=== PATIENT | male | born 1965 | race African-American/Black ===

== ENCOUNTER 2017-03-22 14:04 | Inpatient (IN) ==
[2017-03-22] MEDS ORDERED: MAGNESIUM SULF RIDER 4 GM in PREMIX 1 EACH IV PRN (14:17)
[2017-03-22] MEDS ORDERED: ZALEPLON 5 MG CAPSULE PO PRN (14:17)
[2017-03-22] MEDS ORDERED: ACETAMINOPHEN 325 MG TABLET PO PRN (14:17)
[2017-03-22] MEDS ORDERED: MAGNESIUM SULF RIDER 2 GM in PREMIX 1 EACH IV PRN (14:17)
[2017-03-22] MEDS ORDERED: DOCUSATE SODIUM 100 MG CAPSULE PO PRN (14:17)
[2017-03-22] MEDS ORDERED: ONDANSETRON 4 MG/2 ML VIAL IV PRN (14:17)
[2017-03-22] MEDS ORDERED: GLUCAGON 1 MG VIAL IM PRN (14:25)
[2017-03-22] MEDS ORDERED: DEXTROSE 50% 25 GM/50 ML VIAL IV PRN (14:25)
--- NOTE | 2017-03-22 16:14 | Cardiology History & Physical ---
Assessment and Plan - Time spent with patient Time spent with patient: Greater than 30 minutes (1) Acute decompensated heart failure Status: Acute Assessment and plan: Acute on chronic systolic and diastolic heart failure Current Visit: Yes (2) Chronic renal insufficiency, stage III (moderate) Status: Chronic Assessment and plan: renal ultrasound and ask Dr. Celis to see. This is chronic at creat of 2.[address] Nieves's office. Back to 2014 creatinine from 1.7 to 3.3 mg/dL Current Visit: Yes (3) Diabetes mellitus Status: Chronic Current Visit: Yes Qualifiers: Diabetes mellitus type: type 2 (4) Dyslipidemia Status: Chronic Assessment and plan: The EHR has atorvastatin listed as an allergy but the patient reports being on this medication. Current Visit: Yes History of Present Illness Chief complaint: Lower extremity edema History of present illness: Mr. Lopez is a 51 year old male gentleman who resides with his parents. He has never been and has no children. The patient has a known history of cardiomyopathy and renal failure. He was evaluated here in 2014 at which time his ejection fraction was 45% and his renal insufficiency had a creatinine of 2.3. He was seen at that time by Dr. Ronni Velásquez from cardiology and Dr. Michelet Celis from nephrology. The patient has apparently not been seen by the specialties in some time and he is followed by primary care provider in [facility]. He also is previously been diagnosed with diabetes and his last evaluation here he was on metformin he now takes Victoza as needed blood sugar greater than 160. He states on average he takes this 2-3 times per week. The patient denies any chest pain and he states that he is able to sleep on one pillow on his stomach each night without orthopnea. Over the last several months he has progressive lower extremity edema for which he saw Dr. Nieves was evaluated and found to have a creatinine of 2.7 and a pro-Beta natruretic peptide of over 10,000. He was referred here for evaluation. The patient denies dyspnea on exertion angina or orthopnea. He does however have significant lower extremity edema that is likely multifactorial. He is admitted for further evaluation and current evaluation and medical therapy. Home Medications Medication Instructions Recorded Confirmed Type Aspirin EC Tab 81 mg PO DAILY tablet 08/27/15 09/23/15 Rx Atorvastatin [Lipitor] 40 mg PO DAILY #30 tablet 08/27/15 09/23/15 Rx Carvedilol [Coreg] 6.25 mg PO BID #30 tablet 08/27/15 09/23/15 Rx Furosemide Tab [Lasix Tab] 40 mg PO DAILY #30 tablet 08/27/15 09/23/15 Rx Nitroglycerin Sl Tab [Nitrostat] 0.4 mg SL Q5M PRN #30 tablet 08/27/15 09/23/15 Rx Liraglutide [Victoza 3-Rhett] 1 ml SUBCUT DAILY 03/22/17 03/22/17 History Lisinopril 40 mg PO DAILY 03/22/17 03/22/17 History Silver Sulfadiazine [Ssd] 1 applicator TOP BID 03/22/17 03/22/17 History Allergies Allergy/AdvReac Type Severity Reaction Status Date / Time atorvastatin [From Lipitor] AdvReac Unknown/Unable Verified 09/23/15 18:31 to obtain ciprofloxacin [From Cipro] AdvReac Unknown/Unable Verified 09/23/15 18:32 to obtain - Constitutional Constitutional: Present: daytime sleepiness, fatigue, lethargy, malaise, weight gain. Absent: anorexia, chills, fever(s), night sweats, stops breathing during sleep - EENT Eyes: Absent: blurry vision, diplopia Ears: Absent: ear discharge Nose, mouth and throat: Absent: dysphagia, lip swelling, tongue swelling - Cardiovascular Cardiovascular: Present: edema. Absent: chest pain at rest, chest pain with activity, diaphoresis, dyspnea, dyspnea on exertion, lightheadedness, orthopnea , palpitations, PND - Respiratory Respiratory: Absent: cough, dyspnea, hemoptysis, dyspnea on exertion, wheezing, snoring, pain on inspiration - Gastrointestinal Gastrointestinal: Absent: abdominal pain, bloating, constipation, cramping, diarrhea, dyspepsia, dysphagia, heartburn, hematemesis, hematochezia, loose stools, melena, nausea, jaundice - Genitourinary Genitourinary: Absent: difficulty urinating, dysuria, flank pain, hematuria, nocturia, testicular pain - Musculoskeletal Musculoskeletal: Absent: arthralgias, joint swelling - Neurological Neurological: Absent: behavioral changes, confusion, convulsions, disequilibrium , dizziness - Psychiatric Psychiatric: Absent: anxiety, depression, panic attacks, suicidal ideation - Endocrine Endocrine: Absent: cold intolerance, fatigue, heat intolerance, polyuria - Hematologic/Lymphatic Hematologic/Lymphatic: Absent: easy bleeding, easy bruising Medical,Surgical,& Family Hx - Medical History Cardio: History of: Hypertension, [place] (NQMI with TnI to 2014), Cardiovascular Problems (cardiomyopathy (45%) 2014) Endocrine: History of: Diabetes Mellitus (NIDDM), Dyslipidemia Respiratory: History of: Intubation, Pneumonia (prolonged ventilator course and required a trach.), Respiratory Problems (pulmonary hypertension) Renal: History of: Renal Failure - Surgical History Additional Surgical History: trach at the time of prolonged mechanical ventilation - Family History Family History: Reports;: Family Diabetes (MOTHER FATHER SISTER), Family Stroke (MOTHER) Denies;: Family Cancer - Social History Smoking Status: Never smoker Frequency of Alcohol Use: None Type of Drug Use: None Marital Status: Single Lives With:: Parent Functional capacity: independent ambulation Cardiology Physical Exam - Constitutional Vitals: Vital Signs Temp Pulse Resp BP Pulse Ox 98.3 F 106 H 18 161/91 100 03/22/17 15:58 03/22/17 15:58 03/22/17 15:58 03/22/17 15:58 03/22/17 15:58 Intake and Output 03/22/17 03/22/17 03/22/17 07:59 15:59 23:59 Other: Weight 95.736 kg Patient Weight 03/22/17 23:59 Weight 95.736 kg General appearance: normal weight - Head Head exam: Present: normal inspection - Eye Eye exam: Present: EOMI Pupils: Present: JOSE - ENT ENT exam: Present: normal exam - Neck Neck exam: Present: normal inspection - Respiratory Respiratory exam: Present: clear to auscultation bilaterally - Cardiovascular Cardiovascular exam: Present: regular rate and rhythm (summation gallop and PMI is enlarged. No significant murmur) - GI/Abdominal GI/Abdominal exam: Present: normal bowel sounds - Extremities Exam Extremities exam: Present: full ROM, edema (3+) - Back Exam Back exam: Present: normal inspection - Neurological Exam Neurological exam: Present: alert, oriented X3 - Psychiatric Psychiatric exam: Present: flat affect - Skin Skin exam: Present: normal color, warm, erythema
[2017-03-22 16:38] LABS: Basophils # 0.1 10*3/uL (0.0-0.2); Basophils % 0.8 % (0.0-0.8); Eosinophils % 0.7 % (0.00-10.9); Hematocrit 38.9 VOL% (42.0-52.0); Hemoglobin 12.7 GM/DL (14.0-18.0); Immature Granulocytes % 0.7 %; Immature Granulocytes Absolute 0.04 #; Lymphocytes # 0.9 10*3/uL (1.4-4.0); Mean Corpuscular HGB Conc 32.6 GM/DL (32-36); Mean Corpuscular Hemoglobin 30 PG (27-34); Mean Corpuscular Volume 92.2 FL (87-102); Mean Platelet Volume 11.9 FL (9.6-12.0); Monocytes # 0.6 10*3/uL (0.11-0.8); Monocytes % 9.2 % (1.7-12.7); Neutrophils # 4.5 10*3/uL (1.4-7.4); Neutrophils % 73.6 % (38.7-73.9); Platelet Count 243 T/CUMM (130-400); Red Blood Count 4.22 MC/CUMM (3.8-5.5); White Blood Count 6.1 T/CUMM (4-12)
[2017-03-22] MEDS: hydrALAZINE 25 MG TABLET PO SCH ×2 (16:58→21:19)
[2017-03-22] MEDS: ISOSORBIDE DINITRATE 20 MG TABLET PO SCH ×2 (16:58→21:19)
[2017-03-22] MEDS: FUROSEMIDE 40 MG/4 ML VIAL IV SCH (17:00)
[2017-03-22] MEDS: INSULIN REGULAR 100 UNIT/ML SUBCUT SCH ×2 (17:03→21:19)
--- NOTE | 2017-03-22 17:05 | Nephrology Consult Note ---
History of Present Illness Chief complaint: Increased BUN and creatinine History of present illness: Mr. Lopez is a 51 year old male with chronic kidney disease who apparently saw in the past about 2 years ago for the same. Patient was admitted today for swelling in his legs. The patient states his leg swelling has been progressively worsening over the past month or so. The patient takes Lasix 40 mg once daily at home. He states this is been effective for him. He does state that perhaps he is been eating at [employer] a little bit more frequently than usual. The patient also takes lisinopril at home. Review of the patient' s lab from a year ago reveals that he had a creatinine around 2.8 mg/dL in 2016 and apparently his creatinine at the outpatient office today was 2.7 mg/dL. The patient is presently getting Lasix 80 mg twice a day IV. The patient denies any shortness of breath or paroxysmal nocturnal dyspnea. ROS: Head - denies headaches ENT - denies sore throat Lymphatics - denies lymphadenopathy Hematology - denies bleeding problems Heart - denies chest pain Lungs - denies shortness of breath Abdomen - denies abdominal pain Musculoskeletal - denies arthritis, he takes a couple of aspirin every week or so for headaches. Skin - denies rash Neurology - denies stroke General - denies fever PE: General: in no acute distress Eyes: Pupils are round and reactive, conjunctivae are clear ENT: Nose is clear, O/P is benign Neck: Supple, no thyromegaly Lymphatics: No cervical, supraclavicular or axillary adenopathy Heart: Regular rate and rhythm, 2+ pretibial edema Lungs: Clear to auscultation anteriorly, chest expansion symmetric Abdomen: Soft, normoactive bowel sounds, no hepatomegaly Musculoskeletal: No joint erythema or effusions or joint asymmetry Skin: Normal turgor, normal hydration, no rash Neuro/Psych: Alert and cooperative with fair insight Home Medications Medication Instructions Recorded Confirmed Type Aspirin EC Tab 81 mg PO DAILY tablet 08/27/15 03/22/17 Rx Atorvastatin [Lipitor] 40 mg PO DAILY #30 tablet 08/27/15 03/22/17 Rx Carvedilol [Coreg] 6.25 mg PO BID #30 tablet 08/27/15 03/22/17 Rx Furosemide Tab [Lasix Tab] 40 mg PO DAILY #30 tablet 08/27/15 03/22/17 Rx Nitroglycerin Sl Tab [Nitrostat] 0.4 mg SL Q5M PRN #30 tablet 08/27/15 03/22/17 Rx Liraglutide [Victoza 3-Rhett] 1 ml SUBCUT DAILY 03/22/17 03/22/17 History Lisinopril 40 mg PO DAILY 03/22/17 03/22/17 History Silver Sulfadiazine [Ssd] 1 applicator TOP BID 03/22/17 03/22/17 History Allergies Allergy/AdvReac Type Severity Reaction Status Date / Time atorvastatin [From Lipitor] AdvReac Unknown/Unable Verified 09/23/15 18:31 to obtain ciprofloxacin [From Cipro] AdvReac Unknown/Unable Verified 09/23/15 18:32 to obtain Medical,Surgical,& Family Hx - Medical History Cardio: History of: Congenital Heart Disease, CAD, Hypertension, [place] (NQMI with TnI to 2014), Cardiovascular Problems (cardiomyopathy (45%) 2014) Endocrine: History of: Diabetes Mellitus (NIDDM), Dyslipidemia Respiratory: History of: Intubation, Pneumonia (prolonged ventilator course and required a trach.), Respiratory Problems (pulmonary hypertension) Renal: History of: Renal Failure - Family History Family History: Reports;: Family Diabetes (MOTHER FATHER SISTER), Family Stroke (MOTHER) Denies;: Family Cancer - Social History Smoking Status: Former smoker Frequency of Alcohol Use: None Type of Drug Use: None Exam - Vital Signs Vital signs: Period Temp Pulse Resp BP Sys/Alvarez Pulse Ox Last 24 Hr 98.3 F 106 18 161/91 100 Results - Labs CBC & BMP: 03/22/17 16:06 Assessment and Plan (1) Chronic renal insufficiency, stage III (moderate) Status: Chronic Assessment and plan: Patient's creatinine apparently is 2.7 mg/dL in the outpatient setting this is unchanged from about a year ago. I suspect his renal insufficiency is secondary to his diabetes and hypertension. We will continue to monitor this. Current Visit: Yes (2) Acute decompensated heart failure Status: Acute Assessment and plan: I agree with the Lasix as ordered, will observe for an increase in his creatinine during his diuresis. His KEL inhibitor is being held presently during his active diuresis once he is out of heart failure and if his creatinine is fairly stable I would be inclined to restart his KEL inhibitor. Current Visit: Yes (3) Diabetes mellitus Status: Chronic Current Visit: Yes Qualifiers: Diabetes mellitus type: type 2 (4) Anemia Status: Acute Assessment and plan: This is mild the patient's is around 39% Current Visit: Yes
[2017-03-22 17:14] LABS: Bilirubin,Direct 0.1 MG/DL (0.0-0.20); Bilirubin,Indirect 0.3 MG/DL (0.0-1.0); Bilirubin,Total 0.4 MG/DL (0.2-1.0); Total Protein 6.1 G/DL (6.4-8.3)
[2017-03-22 17:20] LABS: Calcium 9.7 MG/DL (8.5-10.1); Magnesium 1.7 MG/DL (1.8-2.4); Osmolality,Calculated 281.7 MOS/KG (273-304); Potassium 4.3 MMOL/L (3.5-5.1); Risk Ratio 1.96; Thyroid Stimulating Hormone 1.22 uIU/ml (0.358-3.74); VLDL CHOLESTEROL 14.8 MG/DL
[2017-03-22 17:44] LABS: Apearance,Urine CLEAR (Clear); Bilirubin,Urine Negative (Negative); Blood, Urine Negative (Negative); Glucose,Urine (UA) 50 mg/dL (Negative); Ketones,Urine Negative (Negative); Mucus,Urine Occasional /LPF (Occasional); Nitrite,Urine Negative (Negative); Protein,Urine >=500 MG/DL; RBC,Urine 1 /HPF (0-4); Urine Color Straw (Yellow); Urine Specific Gravity 1.007 (1.001-1.035); Urine Urobilinogen < 2.0 EU/DL (0.2-1.0)
--- NOTE | 2017-03-22 19:16 | Ultrasound Report ---
Exam: US renal Bilateral Date: 03/22/2017 2:17 PM Comparison: 08/23/2015 Indication: Chronic renal failure Technique:[Multiple transabdominal real-time scans were obtained of the kidneys. Ultrasound images were captured and stored.] Findings: Right kidney measures 101 x 49 x 43 mm. Right kidney measured 106 mm on previous exam. Left kidney measures 109 x 54 x 55 mm. Left kidney measures 110 mm in length on previous exam. 9 mm right midpole possible calculus with no hydronephrosis. Cortical scarring in the kidneys with inhomogeneous echogenicity. No masses are identified. Impression: Progressive cortical scarring in the kidneys with inhomogeneous echogenicity which can be seen with medical renal disease. Possible 9 mm right midpole renal calculus with no hydronephrosis. PROCEDURE INTERPRETED AT [facility] DEPARTMENT OF RADIOLOGY Final Report Signed by: Dr. Fauzia Perez
--- NOTE | 2017-03-22 19:18 | XRay Report ---
XR chest 2V Date: 03/22/2017 2:19 PM History: Shortness of breath Comparison: 09/23/2015 Technique: PA and lateral chest Findings: The heart is minimally enlarged with calcification in the aortic knob. Small left pleural effusion with progressive adjacent parenchymal findings. Decreased parenchymal findings at the right lung base. Stable mediastinum and osseous structures. Impression: Small left pleural effusion with adjacent atelectasis/infiltration. Follow-up chest x-ray is recommended to document clearing and exclude additional underlying pleural-based pathology. Reduced atelectasis/edema at the right lung base. PROCEDURE INTERPRETED AT [facility] DEPARTMENT OF RADIOLOGY Final Report Signed by: Dr. Fauzia Perez
[2017-03-22] MEDS ORDERED: CARVEDILOL 3.125 MG TABLET PO SCH (21:00)
[2017-03-22] MEDS: CARVEDILOL 6.25 MG TABLET PO SCH (21:19)
[2017-03-22] MEDS: ENOXAPARIN 40 MG/0.4 ML SYRINGE SUBCUT SCH (21:19)
[2017-03-23 04:55] LABS: Basophils # 0.1 10*3/uL (0.0-0.2); Basophils % 1.1 % (0.0-0.8); Eosinophils # 0.1 10*3/uL (0.0-0.87); Hematocrit 32.2 VOL% (42.0-52.0); Hemoglobin 10.5 GM/DL (14.0-18.0); Immature Granulocytes % 0.2 %; Immature Granulocytes Absolute 0.01 #; Lymphocytes # 1.4 10*3/uL (1.4-4.0); Lymphocytes % 24.3 % (21.2-54.2); Mean Corpuscular HGB Conc 32.6 GM/DL (32-36); Mean Corpuscular Hemoglobin 30 PG (27-34); Mean Corpuscular Volume 90.4 FL (87-102); Mean Platelet Volume 11.5 FL (9.6-12.0); Monocytes # 0.8 10*3/uL (0.11-0.8); Monocytes % 14.7 % (1.7-12.7); Neutrophils # 3.3 10*3/uL (1.4-7.4); Neutrophils % 57.7 % (38.7-73.9); Platelet Count 206 T/CUMM (130-400); Red Blood Count 3.56 MC/CUMM (3.8-5.5); Red Cell Distribution Width 14.7 % (9.3-17.3); White Blood Count 5.6 T/CUMM (4-12)
[2017-03-23 05:21] LABS: Calcium 8.2 MG/DL (8.5-10.1); Magnesium 1.7 MG/DL (1.8-2.4); Osmolality,Calculated 288.3 MOS/KG (273-304); Potassium 3.9 MMOL/L (3.5-5.1)
--- NOTE | 2017-03-23 06:55 | EKG Report ---
Stationary ECG Study [facility] Test Date: 03/23/2017 6:55:53 AM Pat Name: JOSE ARMANDO ROBLES Department: Room: 270 Gender: M Arts Therapist: RUBEN : 1965 Requested by: Siri Alvarado Order Number: [id number] Geovanny MD: JEFF LITTLE Intervals [place] Rate: 93 P: 57 [place]: 184 QRS: 40 QRSD: 90 T: 156 QT: 369 QTc: 419 Interpretive Statements SINUS RHYTHM WITH SINUS ARRHYTHMIA POSSIBLE ANTERIOR MYOCARDIAL INFARCTION, OLD Electronically Signed On 03-23-17 12:56:43 CDT by JEFF LITTLE [email or web address]
--- NOTE | 2017-03-23 08:06 | Nephrology Progress Note ---
Nephrology - PN: Subj Interval history: Patient denies shortness of breath. Review of systems cardiovascular-patient feels like he has not lost any of the edema in his legs Physical exam general patient is in no acute distress, he has 1-2+ pretibial edema, his weight is unchanged from yesterday Assessment/plan 1. Chronic kidney disease stage III-patient's creatinine is unchanged at 2.7 mg/dL, I suspect this patient has chronic kidney disease related to diabetes and hypertension 2. Volume overload-this patient has some extra fluid in his legs however he is asymptomatic, based on his weights and subjective appearance he may not have had much of a diuresis with the present dose of Lasix. We could try going to 160 mg of Lasix IV. He is asymptomatic and we could also try and manage him outpatient if so and probably give him 80 mg 160 mg p.o. twice daily with close follow-up. I be happy to see the patient in a week or 2 post discharge 3. Diabetes mellitus 4. Hypertension this is controlled Exam (PN)-Nephrology - Vital Signs Vital signs: Period Temp Pulse Resp BP Sys/Alvarez Pulse Ox Last 24 Hr 97.9 F-98.7 F 90-106 16-18 123-161/31-91 91-100 - Lab 03/23/17 04:38 03/23/17 04:38 Most recent lab results Calcium 8.2 MG/DL (8.5-10.1) L 03/23/17 04:38 Magnesium 1.7 MG/DL (1.8-2.4) L 03/23/17 04:38 Assessment and Plan (1) Chronic renal insufficiency, stage III (moderate) Status: Chronic Assessment and plan: Patient's creatinine apparently is 2.7 mg/dL in the outpatient setting this is unchanged from about a year ago. I suspect his renal insufficiency is secondary to his diabetes and hypertension. We will continue to monitor this. Current Visit: Yes (2) Acute decompensated heart failure Status: Acute Assessment and plan: I agree with the Lasix as ordered, will observe for an increase in his creatinine during his diuresis. His KEL inhibitor is being held presently during his active diuresis once he is out of heart failure and if his creatinine is fairly stable I would be inclined to restart his KEL inhibitor. Current Visit: Yes (3) Diabetes mellitus Status: Chronic Current Visit: Yes Qualifiers: Diabetes mellitus type: type 2 (4) Anemia Status: Acute Assessment and plan: This is mild the patient's is around 39% Current Visit: Yes Specialty Discharge - Follow Up or Referrals Follow up with: Cachorro Celis MD [Physician] - 1 Week (with a bmp)
[2017-03-23] MEDS ORDERED: ASPIRIN EC 81 MG TABLET PO SCH (09:00)
[2017-03-23] MEDS: ASPIRIN CHEW 81 MG TABLET PO SCH (09:14)
[2017-03-23] MEDS: CARVEDILOL 6.25 MG TABLET PO SCH ×2 (09:14→21:15)
[2017-03-23] MEDS: ISOSORBIDE DINITRATE 20 MG TABLET PO SCH ×3 (09:14→21:14)
[2017-03-23] MEDS: PANTOPRAZOLE 40 MG TABLET PO SCH (09:14)
[2017-03-23] MEDS: hydrALAZINE 25 MG TABLET PO SCH ×3 (09:14→21:15)
[2017-03-23] MEDS: FUROSEMIDE 40 MG/4 ML VIAL IV SCH ×2 (09:15→17:15)
[2017-03-23] MEDS: INSULIN REGULAR 100 UNIT/ML SUBCUT SCH ×4 (09:15→21:15)
[2017-03-23] MEDS: ATORVASTATIN 40 MG TABLET PO SCH (09:17)
--- NOTE | 2017-03-23 13:50 | ECHO Report ---
Tim Lopez 03/23/2017 Exam Date: 10:28 Referring Physician: Reva Munroe Technologist: GAGE Age: 51 Ht (in): 70 Wt (lb): 211 MExam [facility] Gender: Echo [id number]: diabetes, dyslipidemia, lower extremIndications:ities edema, acute decompensated heart failure, chronic renal failure BP: 121 / 75 HR: 81 SinusRhythm: GOODTechnical Quality: IMPRESSIONS Left ventricular ejection fraction is estimated at 20Mild tricuspid valve regurgitation. Tricuspid regurgitation velocities suggest a RVSP of 42mmhg + RAP. %. There is global hypokinesis. Diastolic parameters are most consistent with grade 3 diastolic dysfunction restrictive physiology. MEASUREMENTS (Male / Female) Normal Values 2D ECHO LV Diastolic Diameter PLAX 5.4 cm 4.2 - 5.9 / 3.9 - 5.3 cm LV Systolic Diameter PLAX 4.9 cm LV Fractional Shortening PLAX 9.6 % IVS Diastolic Thickness 1.2 cm 0.6 - 1.0 / 0.6 - 0.9 cm LVPW Diastolic Thickness 1.2 cm 0.6 - 1.0 / 0.6 - 0.9 cm RV Internal Dim ED PLAX 2.8 cm Aortic Root Diameter 2.5 cm LA Systolic Diameter LX 4.1 cm 3.0 - 4.0 / 2.7 - 3.8 cm DOPPLER TR Peak Velocity 326.0 cm/s TR Peak Gradient 42.5 mmHg FINDINGS Left Ventricle Mildly increased left ventricular cavity size. Mild concentric left ventricular hypertrophy with severe diastolic dysfunction. Left ventricular ejection fraction is estimated at 20-%. There is global hypokinesis. Diastolic parameters are most consistent with grade 3 diastolic dysfunction restrictive physiology. Right Ventricle Normal right ventricular size. Right Atrium Normal right atrial size. Left Atrium The left atrium is mildly enlarged. Mitral Valve Morphologically normal mitral valve. Trace mitral valve regurgitation. Aortic Valve The aortic valve is trileaflet, delicate and has normal motion. Trace to mild aortic valve regurgitation. Tricuspid Valve Morphologically normal tricuspid valve. Mild tricuspid valve regurgitation. Tricuspid regurgitation velocities suggest a RVSP of 42mmhg + RAP. Pulmonic Valve Morphologically normal pulmonic valve. Pericardium No pericardial effusion. Aorta Normal size aortic root and proximal ascending aorta. Paige Covington (Electronically Signed) 23 March 2017 Final Date: 13:49
--- NOTE | 2017-03-23 13:53 | Cardiology Progress Note ---
Assessment and Plan - Time spent with patient Time spent with patient: Less than 30 minutes (1) Acute decompensated heart failure Status: Acute Assessment and plan: See plan of care listed below. Current Visit: Yes (2) Chronic renal insufficiency, stage III (moderate) Status: Chronic Assessment and plan: See plan of care listed below. Current Visit: Yes (3) Diabetes mellitus Status: Chronic Assessment and plan: See plan of care listed below. Current Visit: Yes Qualifiers: Diabetes mellitus type: type 2 (4) Dyslipidemia Status: Chronic Assessment and plan: See plan of care listed below. 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 Lopez is a 51 year old male with a history of cardiomyopathy and renal failure. He was evaluated here in 2014 at which time his ejection fraction was 45% and his renal insufficiency had a creatinine of 2.3. He was seen at that time by Dr. Ronni Velásquez from cardiology and Dr. Michelet Celis from nephrology. He was referred to our facility from Dr. Nieves's office on 03/22/17 for further evaluation of progressive BLE edema, creatinine 2.7, and pro-BNP of >10,000. We have ordered an echo for further evaluation and consulted nephrology to aid in his care. Renal ultrasound revealed progressive cortical scarring in the kidneys with inhomogenous echogenicity and a possible 9mm right midpole renal calculus with no hydronephrosis. Echocardiogram revealed EF 20%, grade 3 distolic dysfunction. MARCH 23, 2017 UPDATE: Mr. Lopez continues to have significant BLE edema. He reports he has been ambulating without significant dyspnea and denies orthopnea. He is only negative approximately 500 ml in his I&O's. There has been no significant change in his weight. His Lasix was increased to 80mg IV BID yesterday afternoon. ASSESSMENT/PLAN: 1. ACUTE DECOMPENSATED HEART FAILURE - Acute on chronic systolic and diastolic heart failure. Echo is pending. Continue diuresis with Lasix. 2. CHRONIC RENAL INSUFFICIENCY, STAGE III - Creatinine 2.7 today. Nephrology is following. 3. DIABETES MELLITUS - He is on accuchecks ACHS with sliding scale insulin. 4. DYSLIPIDEMIA - The EHR has atorvastatin listed as an allergy but the patient reports being on this medication. He has been tolerating atorvastating s difficulty. Exam (Progress Note) - Constitutional Vitals: Period Temp Pulse Resp BP Sys/Alvarez Pulse Ox Last 24 Hr 97.9 F-98.7 F 81-106 16-18 121-161/31-91 91-100 Exam: General: Present: Appears Well, No Apparent Distress. Pleasant and cooperative. HEENT: Present: PERRL, Normocephaly, atraumatic. Mucus Membranes Moist. Conjunctiva moist and clear. Neck: Present: Supple Neck, Midline Trachea, No Masses, No Bruit, No tenderness Cardiac: Present: Regular Rate and Rhythm, No Murmur Lungs: Present: clear to auscultation bilaterally, no wheezes, rhonchi, rales. Neuro: Present: Awake, alert, and oriented x3. Moves all extremities well without hemiparesis or paralysis. Grossly Intact. Absent: Resting Tremor, Essential Tremor Abdomen: Present: Soft, Active Bowel Sounds, No Masses, Non-Tender, nondistended. No abdominal bruit or thrill noted. Skin: Present: Clear. Absent: Rash, No skin breakdown. Back: Normal inspection, no vertebral tenderness. Musculoskeletal: Present: No Fluid Collection, No Pain, Normal Range of Motion Extremities: Present: Normal Gait, No Clubbing, No Cyanosis, Upper Extr. Pulses 2+, Lower Extr. Pulses 2+, 2-3+ pitting edema to BLE. Capillary refill less than 3 seconds. Result/EKG - Labs CBC & BMP: 03/23/17 04:38 03/23/17 04:38 Lab Results: I have reviewed the past 24 hour labs Labs: Laboratory Results - last 24 hr 03/22/17 03/22/17 03/22/17 15:58 15:58 16:06 WBC 6.1 RBC 4.22 Hgb 12.7 L Hct 38.9 L MCV 92.2 MCH 30 MCHC 32.6 RDW 15.0 Plt Count 243 MPV 11.9 Neut % (Auto) 73.6 Lymph % (Auto) 15.[address] % (Auto) 9.2 Eos % (Auto) 0.7 Baso % (Auto) 0.8 Neut # (Auto) 4.5 Lymph # (Auto) 0.[address] [facility] # (Auto) 0.6 Eos # (Auto) 0.0 Baso # (Auto) 0.1 Immature Gran % 0.7 Nucleated RBC % 0.0 Immature Gran # 0.04 Nucleated RBCs # 0.00 Sodium Potassium Chloride Carbon Dioxide Anion Gap BUN Creatinine GFR Calculation BUN/Creatinine Ratio Glucose POC Glucose Hemoglobin A1c 7.5 H Calculated Osmolality Calcium Magnesium Total Bilirubin 0.40 Direct Bilirubin 0.10 Indirect Bilirubin 0.3 AST 35 ALT 26 Alkaline Phosphatase 72 Troponin I Total Protein 6.1 L Albumin 3.0 L Triglycerides Cholesterol LDL Cholesterol VLDL Cholesterol HDL Cholesterol Heart Disease Risk Ratio TSH 3rd Generation Urine Color Urine Appearance Urine pH Ur Specific [place] Urine Protein Urine Glucose (UA) Urine Ketones Urine Blood Urine Nitrate Urine Bilirubin Urine Urobilinogen Urine Leukocytes Urine RBC Urine Mucus Ur Culture Indicated? 03/22/17 03/22/17 03/22/17 16:06 16:06 17:02 WBC RBC Hgb Hct MCV MCH MCHC RDW Plt Count MPV Neut % (Auto) Lymph % (Auto) [place] % (Auto) Eos % (Auto) Baso % (Auto) Neut # (Auto) Lymph # (Auto) [place] # (Auto) Eos # (Auto) Baso # (Auto) Immature Gran % Nucleated RBC % Immature Gran # Nucleated RBCs # Sodium 138 Potassium 4.3 Chloride 101 Carbon Dioxide 32 Anion Gap 9.3 BUN 33 H Creatinine 2.70 H GFR Calculation 37 BUN/Creatinine Ratio 12.00 Glucose 97 POC Glucose 130 H Hemoglobin A1c Calculated Osmolality 281.7 Calcium 9.7 Magnesium 1.7 L Total Bilirubin Direct Bilirubin Indirect Bilirubin AST ALT Alkaline Phosphatase Troponin I 0.053 H Total Protein Albumin Triglycerides 74 Cholesterol 180 LDL Cholesterol 86.0 VLDL Cholesterol 14.8 HDL Cholesterol 92 H Heart Disease Risk Ratio 1.96 TSH 3rd Generation 1.220 Urine Color Urine Appearance Urine pH Ur Specific [place] Urine Protein Urine Glucose (UA) Urine Ketones Urine Blood Urine Nitrate Urine Bilirubin Urine Urobilinogen Urine Leukocytes Urine RBC Urine Mucus Ur Culture Indicated? 03/22/17 03/22/17 03/22/17 17:30 18:56 20:19 WBC RBC Hgb Hct MCV MCH MCHC RDW Plt Count MPV Neut % (Auto) Lymph % (Auto) [place] % (Auto) Eos % (Auto) Baso % (Auto) Neut # (Auto) Lymph # (Auto) [place] # (Auto) Eos # (Auto) Baso # (Auto) Immature Gran % Nucleated RBC % Immature Gran # Nucleated RBCs # Sodium Potassium Chloride Carbon Dioxide Anion Gap BUN Creatinine GFR Calculation BUN/Creatinine Ratio Glucose POC Glucose 159 H Hemoglobin A1c Calculated Osmolality Calcium Magnesium Total Bilirubin Direct Bilirubin Indirect Bilirubin AST ALT Alkaline Phosphatase Troponin I 0.039 Total Protein Albumin Triglycerides Cholesterol LDL Cholesterol VLDL Cholesterol HDL Cholesterol Heart Disease Risk Ratio TSH 3rd Generation Urine Color Straw Urine Appearance Clear Urine pH 8.0 Ur Specific [place] 1.007 Urine Protein >=500 Urine Glucose (UA) 50 Urine Ketones Negative Urine Blood Negative Urine Nitrate Negative Urine Bilirubin Negative Urine Urobilinogen < 2.0 H Urine Leukocytes Negative Urine RBC 1 Urine Mucus Occasional Ur Culture Indicated? Not indicated 03/22/17 03/23/17 03/23/17 20:42 04:38 04:38 WBC 5.6 RBC 3.56 L Hgb 10.5 L D Hct 32.2 L MCV 90.4 MCH 30 MCHC 32.6 RDW 14.7 Plt Count 206 MPV 11.5 Neut % (Auto) 57.7 Lymph % (Auto) 24.3 [place] % (Auto) 14.7 H Eos % (Auto) 2.0 Baso % (Auto) 1.1 H Neut # (Auto) 3.3 Lymph # (Auto) 1.4 [place] # (Auto) 0.8 Eos # (Auto) 0.1 Baso # (Auto) 0.1 Immature Gran % 0.2 Nucleated RBC % 0.0 Immature Gran # 0.01 Nucleated RBCs # 0.00 Sodium 141 Potassium 3.9 Chloride 103 Carbon Dioxide 31 Anion Gap 10.9 BUN 36 H Creatinine 2.70 H GFR Calculation 37 BUN/Creatinine Ratio 13.00 Glucose 95 POC Glucose Hemoglobin A1c Calculated Osmolality 288.3 Calcium 8.2 L Magnesium 1.7 L Total Bilirubin Direct Bilirubin Indirect Bilirubin AST ALT Alkaline Phosphatase Troponin I 0.058 H D Total Protein Albumin Triglycerides Cholesterol LDL Cholesterol VLDL Cholesterol HDL Cholesterol Heart Disease Risk Ratio TSH 3rd Generation Urine Color Urine Appearance Urine pH Ur Specific [place] Urine Protein Urine Glucose (UA) Urine Ketones Urine Blood Urine Nitrate Urine Bilirubin Urine Urobilinogen Urine Leukocytes Urine RBC Urine Mucus Ur Culture Indicated? 03/23/17 03/23/17 07:19 11:06 WBC RBC Hgb Hct MCV MCH MCHC RDW Plt Count MPV Neut % (Auto) Lymph % (Auto) [facility] % (Auto) Eos % (Auto) Baso % (Auto) Neut # (Auto) Lymph # (Auto) [facility] # (Auto) Eos # (Auto) Baso # (Auto) Immature Gran % Nucleated RBC % Immature Gran # Nucleated RBCs # Sodium Potassium Chloride Carbon Dioxide Anion Gap BUN Creatinine GFR Calculation BUN/Creatinine Ratio Glucose POC Glucose 101 185 H Hemoglobin A1c Calculated Osmolality Calcium Magnesium Total Bilirubin Direct Bilirubin Indirect Bilirubin AST ALT Alkaline Phosphatase Troponin I Total Protein Albumin Triglycerides Cholesterol LDL Cholesterol VLDL Cholesterol HDL Cholesterol Heart Disease Risk Ratio TSH 3rd Generation Urine Color Urine Appearance Urine pH Ur Specific [place] Urine Protein Urine Glucose (UA) Urine Ketones Urine Blood Urine Nitrate Urine Bilirubin Urine Urobilinogen Urine Leukocytes Urine RBC Urine Mucus Ur Culture Indicated? - EKG EKG results: interpreted by me, sinus rhythm Specialty Discharge - Follow Up or Referrals Follow up with: Cachorro Celis MD [Physician] - 1 Week (with a bmp)
[2017-03-23] MEDS: ENOXAPARIN 40 MG/0.4 ML SYRINGE SUBCUT SCH (21:14)
[2017-03-24 05:55] LABS: Basophils % 0.8 % (0.0-0.8); Eosinophils # 0.1 10*3/uL (0.0-0.87); Eosinophils % 2.1 % (0.00-10.9); Hematocrit 32.6 VOL% (42.0-52.0); Hemoglobin 10.8 GM/DL (14.0-18.0); Immature Granulocytes % 0.4 %; Immature Granulocytes Absolute 0.02 #; Lymphocytes # 0.6 10*3/uL (1.4-4.0); Lymphocytes % 10.8 % (21.2-54.2); Mean Corpuscular HGB Conc 33.1 GM/DL (32-36); Mean Corpuscular Hemoglobin 30 PG (27-34); Mean Corpuscular Volume 90.6 FL (87-102); Mean Platelet Volume 11.6 FL (9.6-12.0); Monocytes # 0.8 10*3/uL (0.11-0.8); Monocytes % 14.6 % (1.7-12.7); Neutrophils # 3.7 10*3/uL (1.4-7.4); Neutrophils % 71.3 % (38.7-73.9); Platelet Count 201 T/CUMM (130-400); Red Cell Distribution Width 14.6 % (9.3-17.3); White Blood Count 5.2 T/CUMM (4-12)
[2017-03-24 06:09] LABS: Calcium 8.2 MG/DL (8.5-10.1); Osmolality,Calculated 286.4 MOS/KG (273-304); Potassium 3.9 MMOL/L (3.5-5.1)
[2017-03-24] MEDS ORDERED: ENOXAPARIN 40 MG/0.4 ML SYRINGE SUBCUT SCH (07:30)
[2017-03-24] MEDS: INSULIN REGULAR 100 UNIT/ML SUBCUT SCH ×2 (07:51→13:14)
--- NOTE | 2017-03-24 08:53 | Event Note ---
Patient underwent nuclear stress testing this morning without incident. Patient attempted Full Nick Protocol but was transitioned to Lexiscan walk due to bilateral lower extremity fatigue and dyspnea. 5.8 METs achieved. Patient experienced no chest pain, heaviness, or tightness. No dizziness, lightheadedness, or syncope. Patient will now be transitioned to nuclear medicine for final scan. Dr. Covington to read, interpret, and advise.
--- NOTE | 2017-03-24 08:54 | Cardiology Progress Note ---
Assessment and Plan - Time spent with patient Time spent with patient: Less than 30 minutes (1) Acute decompensated heart failure Status: Acute Assessment and plan: See plan of care listed below. Current Visit: Yes (2) Chronic renal insufficiency, stage III (moderate) Status: Chronic Assessment and plan: See plan of care listed below. Current Visit: Yes (3) Diabetes mellitus Status: Chronic Assessment and plan: See plan of care listed below. Current Visit: Yes Qualifiers: Diabetes mellitus type: type 2 (4) Dyslipidemia Status: Chronic Assessment and plan: See plan of care listed below. 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 Nieves SUMMARY: Mr. Lopez is a 51 year old male with a history of cardiomyopathy and renal failure. He was evaluated here in 2014 at which time his ejection fraction was 45% and his renal insufficiency had a creatinine of 2.3. He was seen at that time by Dr. Ronni Velásquez from cardiology and Dr. Michelet Celis from nephrology. He was referred to our facility from Dr. Nieves's office on 03/22/17 for further evaluation of progressive BLE edema, creatinine 2.7, and pro-BNP of >10,000. We have ordered an echo for further evaluation and consulted nephrology to aid in his care. Renal ultrasound revealed progressive cortical scarring in the kidneys with inhomogenous echogenicity and a possible 9mm right midpole renal calculus with no hydronephrosis. Echocardiogram revealed EF 20%, grade 3 distolic dysfunction. MARCH 24, 2017 UPDATE: Mr. Lopez continues to have BLE edema although this is improving. He reports he has been ambulating without significant dyspnea and denies orthopnea. He is negative 1.4L in his I&O's. His weight has gone from 2113 to ~203#. He is now on Lasix 80mg IV BID. He underwent nuclear stress testing this morning without incident. We are awaiting these results. ASSESSMENT/PLAN: 1. ACUTE DECOMPENSATED HEART FAILURE - Acute on chronic systolic and diastolic heart failure. Echo revealed ejection fraction 20%, grade 3 diastolic dysfunction, global hypokinesis. Continue diuresis with Lasix. 2. CHRONIC RENAL INSUFFICIENCY, STAGE III - Creatinine 3.0 today. Nephrology is following. 3. DIABETES MELLITUS - He is on accuchecks ACHS with sliding scale insulin. 4. DYSLIPIDEMIA - The EHR has atorvastatin listed as an allergy but the patient reports being on this medication. He has been tolerating atorvastating s difficulty. Exam (Progress Note) - Constitutional Vitals: Period Temp Pulse Resp BP Sys/Alvarez Pulse Ox Last 24 Hr 97.2 F-98.5 F 70-86 16-18 118-130/46-90 97-100 Exam: General: Present: Appears Well, No Apparent Distress. Pleasant and cooperative. HEENT: Present: PERRL, Normocephaly, atraumatic. Mucus Membranes Moist. Conjunctiva moist and clear. Neck: Present: Supple Neck, Midline Trachea, No Masses, No Bruit, No tenderness Cardiac: Present: Regular Rate and Rhythm, No Murmur Lungs: Present: clear to auscultation bilaterally, no wheezes, rhonchi, rales. Neuro: Present: Awake, alert, and oriented x3. Moves all extremities well without hemiparesis or paralysis. Grossly Intact. Absent: Resting Tremor, Essential Tremor Abdomen: Present: Soft, Active Bowel Sounds, No Masses, Non-Tender, nondistended. No abdominal bruit or thrill noted. Skin: Present: Clear. Absent: Rash, No skin breakdown. Back: Normal inspection, no vertebral tenderness. Musculoskeletal: Present: No Fluid Collection, No Pain, Normal Range of Motion Extremities: Present: Normal Gait, No Clubbing, No Cyanosis, Upper Extr. Pulses 2+, Lower Extr. Pulses 2+, 2+ pitting edema to BLE. Capillary refill less than 3 seconds. Result/EKG - Labs CBC & BMP: 03/24/17 05:31 03/24/17 05:31 Lab Results: I have reviewed the past 24 hour labs Labs: Laboratory Results - last 24 hr 03/23/17 03/23/17 03/23/17 11:06 15:56 19:37 WBC RBC Hgb Hct MCV MCH MCHC RDW Plt Count MPV Neut % (Auto) Lymph % (Auto) [place] % (Auto) Eos % (Auto) Baso % (Auto) Neut # (Auto) Lymph # (Auto) [place] # (Auto) Eos # (Auto) Baso # (Auto) Immature Gran % Nucleated RBC % Immature Gran # Nucleated RBCs # Sodium Potassium Chloride Carbon Dioxide Anion Gap BUN Creatinine GFR Calculation BUN/Creatinine Ratio Glucose POC Glucose 185 H 140 H 227 H Calculated Osmolality Calcium 03/24/17 03/24/17 03/24/17 05:31 05:31 07:07 WBC 5.2 RBC 3.60 L Hgb 10.8 L Hct 32.6 L MCV 90.6 MCH 30 MCHC 33.1 RDW 14.6 Plt Count 201 MPV 11.6 Neut % (Auto) 71.3 Lymph % (Auto) 10.8 L [place] % (Auto) 14.6 H Eos % (Auto) 2.1 Baso % (Auto) 0.8 Neut # (Auto) 3.7 Lymph # (Auto) 0.6 L [place] # (Auto) 0.8 Eos # (Auto) 0.1 Baso # (Auto) 0.0 Immature Gran % 0.4 Nucleated RBC % 0.0 Immature Gran # 0.02 Nucleated RBCs # 0.00 Sodium 140 Potassium 3.9 Chloride 102 Carbon Dioxide 30 Anion Gap 11.9 BUN 35 H Creatinine 3.00 H GFR Calculation 32 BUN/Creatinine Ratio 11.00 Glucose 93 POC Glucose 102 Calculated Osmolality 286.4 Calcium 8.2 L - EKG EKG results: interpreted by me, sinus rhythm (with occasional PVC) Specialty Discharge - Follow Up or Referrals Follow up with: Cachorro Celis MD [Physician] - 1 Week (with a bmp)
[2017-03-24] MEDS ORDERED: REGADENOSON 0.4 MG/5 ML SYRINGE IV ONE (09:32)
[2017-03-24] MEDS: ASPIRIN CHEW 81 MG TABLET PO SCH (11:01)
[2017-03-24] MEDS: ISOSORBIDE DINITRATE 20 MG TABLET PO SCH ×2 (11:01→15:18)
[2017-03-24] MEDS: ATORVASTATIN 40 MG TABLET PO SCH (11:01)
[2017-03-24] MEDS: CARVEDILOL 6.25 MG TABLET PO SCH (11:01)
[2017-03-24] MEDS: PANTOPRAZOLE 40 MG TABLET PO SCH (11:01)
[2017-03-24] MEDS: hydrALAZINE 25 MG TABLET PO SCH ×2 (11:01→15:17)
[2017-03-24] MEDS: FUROSEMIDE 40 MG/4 ML VIAL IV SCH (11:02)
[2017-03-24 12:03] VITALS: BP 152/81
--- NOTE | 2017-03-24 14:05 | Discharge Summary ---
Hospital Course - Hospital Course Hospital Course: Mr. Lopez is a 51 year old male with a history of cardiomyopathy and renal failure. He was evaluated here in 2014 at which time his ejection fraction was 45% and his renal insufficiency had a creatinine of 2.3. He was seen at that time by Dr. Ronni Velásquez from cardiology and Dr. Michelet Celis from nephrology. He was referred to our facility from Dr. Nieves's office on 03/22/17 for further evaluation of progressive BLE edema, creatinine 2.7, and pro-BNP of >10,000. We consulted nephrology to aid in his management and appreciate their assistance. Renal ultrasound revealed progressive cortical scarring in the kidneys with inhomogenous echogenicity and a possible 9mm right midpole renal calculus with no hydronephrosis. He has been diuresing well with Lasix 80mg IV BID and has had improvement in his BLE edema. His chest x-ray has shown no evidence of any pulmonary edema. His creatinine has hovered in the 2.7-3.0 range which is unchanged from approximately 1 year ago per records. His echocardiogram revealed EF 20%, grade 3 distolic dysfunction, and global hypokinesis. He had a low risk stress test this morning. His vital signs and labwork are stable. Creatinine is 3.0 at discharge. At this time, he has met maximum benefit from hospitalization and will be discharged home in stable condition. He will follow up with Dr. Celis in 1-2 weeks with BMP and follow up with Dr. Velásquez in 1 month with EKG. He will be discharged on an aspirin, beta sheila, statin, and diuretic. KEL/ARB was not initiated due to chronic renal insufficiency. - Time spent with patient Time with patient DS: Less than 30 minutes Diagnosis - Discharge Diagnosis (1) Acute on chronic combined systolic and diastolic CHF (congestive heart failure) Status: Chronic (2) Acute decompensated heart failure Status: Resolved (3) Chronic renal insufficiency, stage III (moderate) Status: Chronic (4) Diabetes mellitus Status: Chronic (5) Dyslipidemia Status: Chronic Specialty Discharge - Follow Up or Referrals Follow up with: Cachorro Celis MD [Physician] - 1 Week (with a bmp) Hussain Velásquez MD [Physician] - 1 Month (with EKG. ) Discharge Plan - Discharge Data Disposition: Disch To Home/Self Care Condition at Discharge: Stable Discharge Diet: diabetic diet, heart healthy Activity: resume usual activities as tolerated Hygiene: no restrictions Weight Bearing at Discharge: full weight bearing Contact your physician if you experience:: fever over 101, Difficulty voiding, Nausea/Vomiting, Shortness of breath - Discharge Medications New Isosorbide Dinitrate [Isordil] 20 mg PO TID #90 tablet hydrALAZINE TAB [Apresoline Tab] 25 mg PO TID #90 tablet Furosemide Tab [Lasix Tab] 80 mg PO BID DIURETIC #60 tablet Continue Aspirin EC Tab 81 mg PO DAILY tablet Carvedilol [Coreg] 6.25 mg PO BID #30 tablet Atorvastatin [Lipitor] 40 mg PO DAILY #30 tablet Nitroglycerin Sl Tab [Nitrostat] 0.4 mg SL Q5M PRN #30 tablet PRN Reason: Chest Pain Silver Sulfadiazine [Ssd] 1 applicator TOP BID Liraglutide [Victoza 3-Rhett] 1 ml SUBCUT DAILY Discontinued Furosemide Tab [Lasix Tab] 40 mg PO DAILY #30 tablet Lisinopril 40 mg PO DAILY - Follow Up or Referral Follow Up: Cachorro Celis MD [Physician] - 1 Week (with a bmp) Hussain Velásquez MD [Physician] - 1 Month (with EKG. ) - Forms/Instructions Instructions: Heart Failure (GEN), Heart Healthy Diet (GEN) Exam - Constitutional Vitals: Period Temp Pulse Resp BP Sys/Alvarez Pulse Ox Last 24 Hr 96.7 F-98.5 F 70-92 16-18 118-152/46-90 95-100 Exam: General: Present: Appears Well, No Apparent Distress. Pleasant and cooperative. HEENT: Present: PERRL, Normocephaly, atraumatic. Mucus Membranes Moist. Conjunctiva moist and clear. Neck: Present: Supple Neck, Midline Trachea, No Masses, No Bruit, No tenderness Cardiac: Present: Regular Rate and Rhythm, No Murmur Lungs: Present: clear to auscultation bilaterally, no wheezes, rhonchi, rales. Neuro: Present: Awake, alert, and oriented x3. Moves all extremities well without hemiparesis or paralysis. Grossly Intact. Absent: Resting Tremor, Essential Tremor Abdomen: Present: Soft, Active Bowel Sounds, No Masses, Non-Tender, nondistended. No abdominal bruit or thrill noted. Skin: Present: Clear. Absent: Rash, No skin breakdown. Back: Normal inspection, no vertebral tenderness. Musculoskeletal: Present: No Fluid Collection, No Pain, Normal Range of Motion Extremities: Present: Normal Gait, No Clubbing, No Cyanosis, Upper Extr. Pulses 2+, Lower Extr. Pulses 2+, 2+ pitting edema to BLE. Capillary refill less than 3 seconds. Discharge Results Procedures and tests throughout hospitalization: Pending Orders 03/24/17 04:00 NM anabela perf SPECT rest or str IN AM 03/25/17 04:00 Basic Metabolic Panel IN AM CBC [Comp Blood Count Auto Diff] IN AM Labs on day of discharge: Labs from last 24 hours 03/24/17 03/24/17 03/24/17 12:00 07:07 05:31 WBC 5.2 RBC 3.60 L Hgb 10.8 L Hct 32.6 L MCV 90.6 MCH 30 MCHC 33.1 RDW 14.6 Plt Count 201 MPV 11.6 Neut % (Auto) 71.3 Lymph % (Auto) 10.8 L [place] % (Auto) 14.6 H Eos % (Auto) 2.1 Baso % (Auto) 0.8 Neut # (Auto) 3.7 Lymph # (Auto) 0.6 L [place] # (Auto) 0.8 Eos # (Auto) 0.1 Baso # (Auto) 0.0 Immature Gran % 0.4 Nucleated RBC % 0.0 Immature Gran # 0.02 Nucleated RBCs # 0.00 Sodium Potassium Chloride Carbon Dioxide Anion Gap BUN Creatinine GFR Calculation BUN/Creatinine Ratio Glucose POC Glucose 126 H 102 Calculated Osmolality Calcium 03/24/17 03/23/17 03/23/17 05:31 19:37 15:56 WBC RBC Hgb Hct MCV MCH MCHC RDW Plt Count MPV Neut % (Auto) Lymph % (Auto) [place] % (Auto) Eos % (Auto) Baso % (Auto) Neut # (Auto) Lymph # (Auto) [place] # (Auto) Eos # (Auto) Baso # (Auto) Immature Gran % Nucleated RBC % Immature Gran # Nucleated RBCs # Sodium 140 Potassium 3.9 Chloride 102 Carbon Dioxide 30 Anion Gap 11.9 BUN 35 H Creatinine 3.00 H GFR Calculation 32 BUN/Creatinine Ratio 11.00 Glucose 93 POC Glucose 227 H 140 H Calculated Osmolality 286.4 Calcium 8.2 L DS: Provider Date of admission: 03/22/17 15:11 Primary care physician: Paige Covington DO Attending physician on admission: Paige Covington DO Consults: 03/22/17 14:17 Consult to Cardiac Rehabilitation [CONS] Routine Reason for Cardiac Rehabilitation: Risk Factor Modification 03/22/17 14:24 Consult to Physician [CONS] Routine Comment: CRI - previously seen by you 2014 Consulting Provider: Cachorro Celis Discharging clinician: SHERRY Mcguire Expected date of discharge: 03/24/17
--- NOTE | 2017-03-24 14:47 | Nephrology Progress Note ---
Nephrology - PN: Subj Interval history: Patient denies shortness of breath. Review of systems GI denies nausea or vomiting, cardiovascular-patient feels like his extremities are less swollen, his weight is also down Physical exam general the patient is chronically ill-appearing, he has 1-2+ pretibial edema Assessment/plan 1. Chronic kidney disease stage III-this patient's creatinine is increased around 3 mg/dL from around 2.7 mg/dL yesterday 2. Volume overload-I would continue his Lasix 80 mg p.o. twice daily as an outpatient as discussed with his cardiology service today 3. Diabetes mellitus 4. Hypertension this is controlled Exam (PN)-Nephrology - Vital Signs Vital signs: Period Temp Pulse Resp BP Sys/Alvarez Pulse Ox Last 24 Hr 96.7 F-98.5 F 70-92 16-18 118-152/46-90 95-100 - Lab 03/24/17 05:31 03/24/17 05:31 Most recent lab results Calcium 8.2 MG/DL (8.5-10.1) L 03/24/17 05:31 Magnesium 1.7 MG/DL (1.8-2.4) L 03/23/17 04:38 Assessment and Plan (1) Chronic renal insufficiency, stage III (moderate) Status: Chronic Assessment and plan: Patient's creatinine apparently is 2.7 mg/dL in the outpatient setting this is unchanged from about a year ago. I suspect his renal insufficiency is secondary to his diabetes and hypertension. We will continue to monitor this. Current Visit: Yes (2) Acute decompensated heart failure Status: Resolved Assessment and plan: I agree with the Lasix as ordered, will observe for an increase in his creatinine during his diuresis. His KEL inhibitor is being held presently during his active diuresis once he is out of heart failure and if his creatinine is fairly stable I would be inclined to restart his KEL inhibitor. Current Visit: Yes (3) Diabetes mellitus Status: Chronic Current Visit: Yes Qualifiers: Diabetes mellitus type: type 2 (4) Anemia Status: Acute Assessment and plan: This is mild the patient's is around 39% Current Visit: Yes Specialty Discharge - Follow Up or Referrals Follow up with: Cachorro Celis MD [Physician] - 1 Week (with a bmp) Hussain Velásquez MD [Physician] - 1 Month (with EKG. )
[2017-03-24] MEDS ORDERED: FUROSEMIDE 80 MG TABLET PO SCH (16:00)
--- NOTE | 2017-03-24 17:27 | Nuclear Medicine Report ---
ROUTINE NUCLEAR STRESS TEST Mr. Lopez is a 51-year-old -[place] that was newly diagnosed cardiomyopathy and severe renal failure. He has advanced renal disease with a creatinine of 3.0, not on dialysis. The patient ambu lated by Nick protocol under the direction of Fanny Monsivais, family nurse practitioner, to 5.8 METS dur ing stage 2 of Nick protocol. He had abnormal resting EKG that worsened. The patient did not reach target heart rate and was transitioned to Lexiscan. I have reviewed his tracings; he has no diagnos tic ST segment changes. The patient did not apparently experience any chest pain. The patient was g iven rest and stress doses of Technetium-99 tracer. Please see the nuclear log for the actual doses. Rest and stress images without prone imaging were reviewed. The patient's raw data, multi-D, multiplanar SPECT images and multidimensional analysis were all revi ewed. The patient had comparable GI uptake in rest and stress images that are acceptable. There is a fixed apical defect that is severe, possibly consistent with thinning; however, this area is dyskin etic on cine ventriculography. There is an area in the anterior septal ventricular myocardium that i s photopenic at rest that appears to worsen minimally with stress imaging. The patient's quantitativ e analysis demonstrates a summed rest score of 11 and summed stress score of 13 and a summed differen ce score of 2. The patient had a global hypokinesis with apical dyskinesis or akinesis as mentioned. The patient has an end-diastolic volume of 219 cc, end-systolic volume of 164 cc and a stroke volum e of 56 cc. IMPRESSIONS: 1. THIS IS AN ABNORMAL STUDY. 2. MODERATE TO SEVERELY DEPRESSED EJECTION FRACTION APPROXIMATELY 25% WITH REGIONAL WALL MOTION ABNO RMALITY AND APICAL AKINESIS OR DYSKINESIS AND AREA OF PHOTOPENIA IN THE ANTERIOR SEPTUM AND MID TO DI STAL ANTERIOR VENTRICULAR MYOCARDIUM THAT WORSENED ONLY MINIMALLY WITH STRESS IMAGING. Given the patient's paucity of symptoms and his advanced renal insufficiency, in my opinion this is b est treated medically. Consider a viability study if possible considerations were given for revascul arization before left heart catheterization. The patient is extremely at high risk for contrast willem steve nephropathy. At this point in juncture, I would treat the patient medically. Procedure performed and interpreted at [facility] Department of Radiology.
== END 2017-03-24 15:40 | disposition home or self-care (01) | DRG 194 ==
LOC: N.TELES → OBSVTOIN 15:11
PROVIDERS: ADMIT Internal Medicine Cardiovascular Disease; ATTEND Internal Medicine Cardiovascular Disease

== ENCOUNTER 2021-03-23 10:35 | Observation (INO) ==
[2021-03-23] MEDS ORDERED: ceFAZolin 2,000 MG/50 ML DUPLEX IV ONE (13:26)
[2021-03-23] MEDS ORDERED: ONDANSETRON 4 MG/2 ML VIAL IV PRN (13:28)
[2021-03-23] MEDS ORDERED: ALBUTEROL/IPRATROPIUM 3 ML NEB RESP TX PRN (13:28)
[2021-03-23] MEDS ORDERED: BISACODYL 5 MG TABLET PO PRN (13:28)
[2021-03-23] MEDS ORDERED: ACETAMINOPHEN 325 MG TABLET PO PRN (13:28)
[2021-03-23] MEDS ORDERED: LIDOCAINE 1%/EPI INJ 20 ML VIAL ONE (13:59)
[2021-03-23 14:06] LABS: Basophils % 0.6 % (0.0-0.8); Eosinophils # 0.6 10*3/uL (0.0-0.87); Eosinophils % 10.4 % (0.00-10.9); Immature Granulocytes % 0.4 %; Immature Granulocytes Absolute 0.02 #; Lymphocytes # 0.6 10*3/uL (1.4-4.0); Lymphocytes % 11.7 % (21.2-54.2); Mean Corpuscular HGB Conc 32.1 GM/DL (32-36); Mean Corpuscular Volume 106.9 FL (87-102); Mean Platelet Volume 11.5 FL (9.6-12.0); Monocytes % 15.2 % (1.7-12.7); Neutrophils % 61.7 % (38.7-73.9); Platelet Count 147 T/CUMM (130-400); Red Blood Count 2.62 MC/CUMM (3.8-5.5); Red Cell Distribution Width 17.3 % (9.3-17.3); White Blood Count 5.4 T/CUMM (4-12)
[2021-03-23] MEDS ORDERED: ETOMIDATE 40 MG/20 ML VIAL IV ONE (14:07)
[2021-03-23] MEDS ORDERED: ONDANSETRON 4 MG/2 ML VIAL ONE (14:07)
[2021-03-23] MEDS ORDERED: fentaNYL 100 MCG/2 ML VIAL ONE (14:07)
[2021-03-23] MEDS ORDERED: DEXAMETHASONE 4 MG/1 ML VIAL ONE (14:07)
[2021-03-23] MEDS ORDERED: propofoL 200 MG/20 ML VIAL IV ONE (14:07)
[2021-03-23] MEDS ORDERED: LIDOCAINE 2% 5 ML VIAL ONE (14:07)
[2021-03-23] MEDS ORDERED: MIDAZOLAM 2 MG/2 ML VIAL ONE (14:07)
[2021-03-23 14:36] LABS: INR < 0.9; PT Patient Result < 8.7 SECS (10.5-12.0)
[2021-03-23 14:43] LABS: Calcium 9.1 MG/DL (8.5-10.1); Osmolality,Calculated 274.7 MOS/KG (273-304); Potassium 4.5 MMOL/L (3.5-5.1)
[2021-03-23 14:53] LABS: Eosinophils 11 % (0-10); Lymphocytes 14 % (20-55); Segmented Neutrophils 64 % (50-85); Total Cells Counted 100
[2021-03-23] MEDS ORDERED: ceFAZolin 1,000 MG VIAL ONE (15:17)
[2021-03-23] MEDS ORDERED: SEVOFLURANE 1 UNIT/15 MINUTE INH ONE (15:35)
[2021-03-23] MEDS ORDERED: GLUCAGON 1 MG VIAL IM PRN (17:36)
[2021-03-23] MEDS ORDERED: DEXTROSE 50% 25 GM/50 ML VIAL IV PRN (17:36)
[2021-03-23] MEDS ORDERED: diphenhydrAMINE CAP 25 MG CAPSULE ONE (20:37)
[2021-03-23] MEDS ORDERED: diphenhydrAMINE CAP 25 MG CAPSULE PO PRN (21:46)
[2021-03-24 05:46] LABS: Basophils % 0.2 % (0.0-0.8); Hematocrit 28.9 VOL% (42.0-52.0); Hemoglobin 9.2 GM/DL (14.0-18.0); Immature Granulocytes % 0.7 %; Immature Granulocytes Absolute 0.03 #; Lymphocytes # 0.3 10*3/uL (1.4-4.0); Mean Corpuscular HGB Conc 31.8 GM/DL (32-36); Mean Corpuscular Volume 105.9 FL (87-102); Mean Platelet Volume 11.9 FL (9.6-12.0); Monocytes % 9.4 % (1.7-12.7); Neutrophils % 83.7 % (38.7-73.9); Platelet Count 155 T/CUMM (130-400); Red Blood Count 2.73 MC/CUMM (3.8-5.5); Red Cell Distribution Width 17.2 % (9.3-17.3); White Blood Count 4.3 T/CUMM (4-12)
[2021-03-24 06:16] LABS: Calcium 9.1 MG/DL (8.5-10.1); Osmolality,Calculated 271.2 MOS/KG (273-304); Potassium 5.2 MMOL/L (3.5-5.1)
[2021-03-24] MEDS ORDERED: PANTOPRAZOLE 40 MG TABLET PO SCH (09:00)
[2021-03-24] MEDS ORDERED: ONDANSETRON 4 MG TABLET PO ONE (09:22)
[2021-03-24 11:29] VITALS: BP 132/50
== END 2021-03-24 11:50 | disposition home health service (06) ==
LOC: N.EDINP 10:35 → N.ED 10:35 → N.3E 14:45
PROVIDERS: ADMIT Surgery; ATTEND Surgery